=== PATIENT | male | born 1945 | race Caucasian/White ===

== ENCOUNTER 2019-02-16 06:29 | Day surgery (SDC) | payer OTHER ==
[~2019-02-16 06:29] MED LIST: Lactated Ringers 1,000 ML IV SCH; Sodium Chloride 0.9% 10 ML SDV IV PRN; Sodium Chloride 0.9% 10 ML Syringe FLUSH PRN; Sodium Chloride 0.9% 2.5 ML Syringe FLUSH PRN; ceFAZolin 2 GM in Premix Bag 1 BAG IV ONE
[2019-02-16] MEDS ORDERED: Lidocaine 1% 20 ML MDV ONE (07:18)
[2019-02-16] MEDS ORDERED: Bupivacaine 0.5% 10 ML SDV ONE (07:18)
[2019-02-16] MEDS ORDERED: ceFAZolin/Dextrose,Iso-Osmotic 2 GM/50 ML Duplex Bag IV ONE (07:40)
[2019-02-16] MEDS ORDERED: Octyl 2-Cyanoacrylate 1 Tube ONE (08:09)
--- NOTE | 2019-02-16 08:40 | PCM.OPNOTE ---
- General Post-Op/Procedure Note Date of Surgery/Procedure: 02/16/19 Operative Procedure(s): Scalp lesion excision Findings: 1.7 x 1.2 x 0.5 cm scalp lesion that was white and firm Pre Op Diagnosis: scalp lesion Post-Op Diagnosis: same Anesthesia Technique: Local Primary Surgeon: Cathy Enriquez EBL in mLs: 2 Condition: Good
[2019-02-16 09:06] VITALS: BP 140/78; PULSE 66
--- NOTE | 2019-02-17 18:35 | OR ---
SURGEON: CATHY ENRIQUEZ MD DATE OF PROCEDURE: 02/16/2019 PREOPERATIVE DIAGNOSIS: Scalp lesion. POSTOPERATIVE DIAGNOSIS: Scalp lesion. PROCEDURE PERFORMED: Excision of scalp lesion. PRIMARY SURGEON: Cathy Enriquez MD. ANESTHESIA: Local. FLUIDS: None. ESTIMATED BLOOD LOSS: 2 mL. FINDINGS: 1.2 x 1.7 x 0.5 cm pearlescent scalp lesion. COMPLICATIONS: None. INDICATIONS: The patient is a 73-year-old male who presents with a hard nodule on the top of his scalp. He would like to have this excised. I discussed the procedure, expected perioperative course, and risks including bleeding or infection. He verbalized understanding and wishes to proceed. PROCEDURE IN DETAIL: The patient was brought into the OR and placed in a beach chair position. A time-out was completed verifying the patient's name, age, date of , allergies, and the procedure to be performed. The scalp lesion and surrounding area were prepped and draped in usual standard fashion. I anesthetized the area with a 1:1 mixture of 0.5% Marcaine plain and 1% lidocaine plain. An incision was made over the top of the lesion using a 15 blade. I immediately noted a hard pearlescent appearing lesion immediately under the skin. Using a hemostat, I was able to separate the lesion from the surrounding subcutaneous tissue. It was then placed on the back table and measured. It measured 1.2 x 1.7 x 0.5 cm in size. There were no margins. The wound was then made hemostatic using electrocautery. It was then closed with interrupted 2-0 Prolene sutures and covered with Dermabond. A sterile dressing was applied. The patient tolerated the procedure well and was taken back to the preoperative area in stable condition. FLAVIO / CATHY /[id number]
== END 2019-02-16 08:43 | disposition home or self-care (01) ==
LOC: MW.SDS 06:29
PROVIDERS: ATTEND Surgery
DX: L72.11 Pilar cyst (principal); I10 Essential (primary) hypertension; E78.5 Hyperlipidemia, unspecified; E11.9 Type 2 diabetes mellitus without complications; G47.33 Obstructive sleep apnea (adult) (pediatric); Z87.891 Personal history of nicotine dependence; Z79.82 Long term (current) use of aspirin; Z79.84 Long term (current) use of oral hypoglycemic drugs; Z79.899 Other long term (current) drug therapy; Z99.89 Dependence on other enabling machines and devices
CPT/HCPCS: 11422; 82962; A9270; J0690; J2001; J3490; J7120

== ENCOUNTER 2022-10-11 08:00 | Day surgery (SDC) | payer OTHER ==
[~2022-10-11 08:00] MED LIST changes: -Sodium Chloride 0.9% 10 ML SDV IV PRN; -Sodium Chloride 0.9% 10 ML Syringe FLUSH PRN; -Sodium Chloride 0.9% 2.5 ML Syringe FLUSH PRN; -ceFAZolin 2 GM in Premix Bag 1 BAG IV ONE; +propofoL 50 ML ONE
[2022-10-11] MEDS ORDERED: Lactated Ringers 1,000 ML IV SCH (09:30)
[2022-10-11 09:53] VITALS: BP 134/81; PULSE 53
== END 2022-10-11 10:10 | disposition home or self-care (01) ==
LOC: MW.SDS 08:00
PROVIDERS: ATTEND Surgery
DX: K57.30 Diverticulosis of large intestine without perforation or abscess without bleeding (principal); E11.9 Type 2 diabetes mellitus without complications; I10 Essential (primary) hypertension; E78.00 Pure hypercholesterolemia, unspecified; G47.33 Obstructive sleep apnea (adult) (pediatric); E66.9 Obesity, unspecified; Z79.82 Long term (current) use of aspirin; Z79.899 Other long term (current) drug therapy; Z79.84 Long term (current) use of oral hypoglycemic drugs; Z80.7 Family history of other malignant neoplasms of lymphoid, hematopoietic and related tissues; Z87.891 Personal history of nicotine dependence
CPT/HCPCS: 45378; J2704; J7120; 00811; 99100